=== PATIENT | male | born 1985 | race Caucasian/White ===

== ENCOUNTER 2017-03-21 16:00 | Inpatient (IN) | payer BC, OTHER ==
[~2017-03-21] VITALS: Ht 180.3 cm; Wt 86.2 kg
--- NOTE | 2017-03-21 21:15 | NUR ---
Pre-Admission Patient was seen in intake office and is noted to be mildly intoxicated but stable to continue with admission. Vital signs rendered and noted as 122/69, 79, 18, 97.9, 98%, 0/10. Medications and unit protocols explained and patient is able to verbalize understanding. Will continue with admission process on unit.
[2017-03-21] MEDS ORDERED: IBUPROFEN 600 MG TABLET PO PRN (22:00)
[2017-03-21] MEDS ORDERED: ACETAMINOPHEN 325 MG TABLET PO PRN (22:00)
[2017-03-21] MEDS ORDERED: BUPRENORPHINE HCL 2 MG TAB.SUBL SL PRN (22:00)
[2017-03-21] MEDS ORDERED: MIRALAX 17 GM POWD.PACK PO PRN (22:00)
[2017-03-21] MEDS ORDERED: ONDANSETRON 4 MG/2 ML VIAL IM PRN (22:00)
[2017-03-21] MEDS ORDERED: MAG HYDROX/AL HYDROX/SIMETH 30 ML LIQUID UDC PO PRN (22:00)
[2017-03-21] MEDS ORDERED: MAGNESIUM HYDROXIDE 30 ML LIQUID UDC PO PRN (22:00)
[2017-03-21] MEDS ORDERED: diphenhydrAMINE 50 MG CAPSULE PO PRN (22:00)
[2017-03-21] MEDS ORDERED: DICYCLOMINE HCL 20 MG TABLET PO PRN (22:00)
[2017-03-21] MEDS ORDERED: DIAZEPAM 10 MG TABLET PO PRN ×2 (22:00)
[2017-03-21] MEDS ORDERED: DIAZEPAM 5 MG TABLET PO PRN (22:00)
[2017-03-21] MEDS ORDERED: ONDANSETRON ODT 4 MG TAB.RAPDIS SL PRN (22:00)
[2017-03-21] MEDS ORDERED: METHOCARBAMOL 750 MG TABLET PO PRN (22:00)
[2017-03-21] MEDS ORDERED: CLONIDINE HCL 0.1 MG TABLET PO PRN (22:00)
[2017-03-21] MEDS ORDERED: LOPERAMIDE HCL 2 MG CAPSULE PO PRN ×2 (22:00)
[2017-03-21] MEDS ORDERED: LORAZEPAM 2 MG/1 ML VIAL IM PRN (22:00)
[2017-03-21] MEDS ORDERED: DOCUSATE SODIUM 250 MG CAPSULE PO PRN (22:00)
[2017-03-21 22:15] VITALS: BP 134/63
--- NOTE | 2017-03-21 22:15 | NUR ---
Admission Patient is a 31 year old [place] [facility] [place] Opiate and Benzo Withdrawals. Patient was escorted on to unit by male DIRECTOR TRADING where body check was rendered and skin noted intact with many tattoos noted to entire body including face. Patient was able to provide urine drug screen upon arriving to unit. Patient verbalizes no known allergies. Height noted as 5'11 and weight noted as 190lbs. Patient is ambulatory with no assistance needed. Patient is noted to be restless, anxious, and easily agitated. Breathing is even and non labored with no signs of SOB. No pain or discomfort verbalized. BUE and BLE noted to be WNL with no edema noted. Lung sounds clear with no cough noted. Bowel sounds are active in all 4 quadrants with LBM noted 03/21/17. Patient verbalizes past medical history as Hep C (+), Depression, Anxiety, and history of seizures due to Benzo withdrawals. No home medications noted. Patient denies any suicidal ideations. Patient explains "I recent relapsed because [facility] did some stuff that I didn't agree with so I left." He describes his usage as: 1. Heroin, for the past month, using 3GM via inhalation or IV with last use noted on the day of admission 2. Xanax, for the past month, using 10mg PO Daily with last dose noted 03/20/17 Patient explains his signs and symptoms of withdrawals as "anxiety, restless, agitation, cold sweats, nausea, vomiting, and really bad panic attacks." Patient is currently homeless and unemployed. Patient reports of multiple treatment programs with last one noted as [facility] in [facility] for 3 weeks. Admission CIWA 15 and COWS 9. All information reviewed with Dr. Mendez. Labs to be rendered. One time dose of Valium 10mg ordered. Will administer medication accordingly. PRN medications available for increased signs and symptoms. Will continue plan of care as ordered.
[2017-03-21 22:27] LABS: *AMPHETAMINE, URINE POSITIVE (NEGATIVE); *BARBITURATE, URINE NEGATIVE (NEGATIVE); *CANNABINOID, URINE POSITIVE (NEGATIVE); *COCCAINE, URINE NEGATIVE (NEGATIVE); *OPIATE, URINE POSITIVE (NEGATIVE); *PHENCYCLIDINE SCREEN,URINE NEGATIVE (NEGATIVE)
[2017-03-21] MEDS ORDERED: DIAZEPAM 10 MG TABLET PO SCH (22:30)
[2017-03-22 00:31] VITALS: BP 105/65
[2017-03-22] MEDS ORDERED: LOPE2CAP PO (02:48)
--- NOTE | 2017-03-22 04:15 | NUR ---
Vitals refused Patient is noted in bed sleeping. Breathing even and non labored. Attempted to render vitals but patient noted to refuse and pull blankets over head. Risks and benefits explained. Will continue to monitor.
--- NOTE | 2017-03-22 07:22 | NUR ---
End of Shift Patient is in bed sleeping. Breathing even and non labored. Patient is a 31 year old male admitted during shift for Opiate and Benzo Withdrawal. During admission patient was noted to be very anxious, restless, increased diaphoresis, and easily agitated. Admission CIWA noted to be 15 and COWS of 9.One time dose of Valium 10mg ordered as scheduled dose. Patient noted to sleep a total of 5 hours. Patient noted to be noncompliant with vitals and refused 0400. All needs attended to promptly. Will endorse to continue plan of care as ordered.
--- NOTE | 2017-03-22 07:35 | NUR ---
START OF SHIFT Pt is a 31 yr old male, AA&Ox3. Pt was admitted on 03/21/16 for Opiate/Benzo Dependence and is on 5 day Subutex and 4 day Valium taper as ordered. Medication kevin well. Received report from shift supervisor nurse. Last COWS core was 9 and CIWA score was 15. Pt slept for 5 hrs. Pt is on fall and seizure precautions. Pt is currently in bed resting with respirations even and unlabored. No acute distress noted. Skin is intact, warm and dry to touch. Safety precautions observed. Call light is within reach. Will continue to monitor. Addendum: 03/22/17 at 1031 by BISI MENSAH LVN Documentation correction, Pt was admitted for medically supervised withdrawal from Opiates/Benzo
[2017-03-22 08:00] VITALS: BP 99/62
[2017-03-22] MEDS ORDERED: TUBERCULIN,PURIF.PROT.DERIV. 5 TU/0.1 ML TEST ID ONE (09:00)
[2017-03-22] MEDS: BUPRENORPHINE HCL 2 MG TAB.SUBL SL SCH ×4 (09:13→20:32)
[2017-03-22] MEDS: DIAZEPAM 10 MG TABLET PO SCH ×4 (09:13→20:32)
[2017-03-22] MEDS: GABAPENTIN 300 MG CAPSULE PO SCH ×3 (09:13→20:32)
[2017-03-22] MEDS ORDERED: TRAZODONE 100 MG TABLET PO PRN (11:30)
[2017-03-22 12:00] VITALS: BP 136/74
[2017-03-22 12:49] LABS: BASOPHILS # (AUTO) 0.1 K/uL (0.0-8.0); BASOPHILS % (AUTO) 1.1 % (0.0-2.0); EOSINOPHILS # (AUTO) 0.2 K/uL (0.0-0.7); EOSINOPHILS % (AUTO) 3.8 % (0.0-7.0); HEMATOCRIT 42.9 % (36.7-47.1); HEMOGLOBIN 14.3 g/dL (12.5-16.3); LYMPHOCYTES # (AUTO) 1.5 K/uL (20.0-40.0); LYMPHOCYTES % (AUTO) 23.6 % (20.5-51.5); MEAN CORPUSCULAR HGB CONC 33 g/dL (32.5-36.3); MEAN CORPUSCULAR VOLUME 87.5 fL (73.0-96.2); MONOCYTES # (AUTO) 0.5 K/uL (2.0-10.0); MONOCYTES % (AUTO) 8.8 % (0.0-11.0); NEUTROPHILS # (AUTO) 3.9 K/uL (1.8-8.9); NEUTROPHILS % (AUTO) 62.7 % (38.5-71.5); PLATELET COUNT (AUTO) 224 K/uL (152-348); RED BLOOD CELL COUNT(AUTO) 4.91 MIL/uL (4.06-5.63); WHITE BLOOD COUNT (AUTO) 6.3 K/uL (3.6-10.2)
[2017-03-22 12:59] LABS: ALANINE AMINOTRANSFERASE 53 U/L (16-63); ALKALINE PHOSPHATASE 62 U/L (50-136); ASPARTATE AMINOTRANSFERASE 28 U/L (15-37); BILIRUBIN,TOTAL 0.3 mg/dL (0.2-1.0); CARBON DIOXIDE 32 mmol/L (21-32); CHLORIDE 103 mmol/L (98-107); CREATININE 1.2 mg/dL (0.6-1.3); GLUCOSE 86 mg/dL (74-106); MAGNESIUM 1.9 mg/dL (1.8-2.4); POTASSIUM 4.3 mmol/L (3.5-5.1); TOTAL PROTEIN, SERUM 7.3 g/dL (6.4-8.2); UREA NITROGEN, BLOOD 13 mg/dL (7-18)
[2017-03-22 13:07] LABS: ETHANOL < 3 MG/DL (0-0)
[2017-03-22 16:00] VITALS: BP 138/77
--- NOTE | 2017-03-22 17:56 | NUR ---
BEHAVIORAL NOTE During medication pass at 1300 and 1700, pt was observed with suspicious behavior while taking medication. Pt was observed going into the bathroom after putting the Subutex tablets underneath his tongue. Pt stated of wanting to look in the mirror to "check" if the Subutex tablet was underneath his tongue and was observed touching his lips. Pt was educated on medication regimen. Pt was able to verbalize understanding. Pt was checked for cheeking after medication administration.
--- NOTE | 2017-03-22 19:05 | NUR ---
Start of Shift Patient Received. Patient is noted walking the halls with another patient. Encouraged patient to attend group meeting and patient states I dont really want to. I was in there but I got tired so I walked out. Per endorsement, patient was noted to be suspicious during medication administration. Patient was also noted to be worried about receiving enough medications during his stay. No PRN medications administered. Last noted COWS 8 and CIWA 6. All needs attended to promptly. Will continue plan of care as ordered.
--- NOTE | 2017-03-22 19:09 | NUR ---
END OF SHIFT Pt is a 31 yr old male, AA&Ox4. Pt has been observed with facial suspicious during medication pass at 1300 and 1700. Pt was checked for cheeking after administration medication. Pt c/o increase anxiety and generalized body aches d/t w/d. Pt was observed pacing back and forth in his room during assessment. Pt was observed with stuffy nose and c/o stomach cramping. Pt was encouraged to attend group activities and therapy groups. Pt attended activities and attended H/I group. Pt was able to consume 75-100% of meal intake. No PRNs were given. Last COWS score was 8 and CIWA score 6 at 1600. Safety precautions observed. Call light is within reach.
[2017-03-22 20:29] VITALS: BP 144/82
--- NOTE | 2017-03-22 22:10 | NUR ---
PRN Medication Administration Patient is noted verbalizing inability of falling asleep and insomnia. PRN Trazodone administered. Will continue to monitor.
--- NOTE | 2017-03-22 23:00 | NUR ---
PRN Medication Reassessment Patient noted to approach nurses station and verbalized "Im going to be but I dont want to be awakened thru the night." Vitals refused. Patient was noted to return to room and to go to bed. PRN Trazodone noted to be effective. Will continue to monitor.
--- NOTE | 2017-03-23 00:46 | NUR ---
Vitals Refused Patient verbalized "Please dont wake me up in the middle of the night for vitals. I just want to sleep." Risks and benefits explained. Patient verbalized understanding and states "I took the sleep medication so I can sleep." Will continue to monitor. Addendum: 03/23/17 at 0048 by FROILAN CHEUNG LVN Amended: Links added.
--- NOTE | 2017-03-23 04:00 | NUR ---
Vitals Refused Patient verbalized "Please dont wake me up in the middle of the night for vitals. I just want to sleep." Risks and benefits explained. Patient verbalized understanding and states "I took the sleep medication so I can sleep." Will continue to monitor. Addendum: 03/23/17 at 0532 by FROILAN CHEUNG LVN Amended: Links added.
--- NOTE | 2017-03-23 07:23 | NUR ---
End of Shift Patient is in bed sleeping but easily aroused to verbal stimuli. Breathing even and non labored. Patient received PRN Trazodone for complaints of insomnia with medication noted to be effective. Patient noted to sleep a total of 6 hours. Last noted CIWA 13 and COWS 14. All needs attended to promptly. Will endorse to continue plan of care as ordered.
--- NOTE | 2017-03-23 07:35 | NUR ---
START OF SHIFT Pt is a 31 yr old male admitted on 03/21/17 for Opiate/Benzo withdrawal. Pt is on day 2 of 5 day Subutex taper and 4 day Valium taper as ordered. Received report from overnight caregiver nurse. Pt received Trazodone PRN for sleep during the night. Pt slept for 6 hrs. Last COWS score was 14 and CIWA score was 13 at 2028. Pt is currently in bed sleeping with respirations even and unlabored. Pt has fallen asleep with gummy bears in his hands. Pt is on fall precautions. Call light is within reach. Will continue to monitor.
[2017-03-23 08:35] VITALS: BP 115/69
[2017-03-23] MEDS ORDERED: HYDROXYZINE PAMOATE 25 MG CAPSULE PO PRN (09:00)
[2017-03-23] MEDS: DIAZEPAM 10 MG TABLET PO SCH ×3 (09:00→20:07)
[2017-03-23] MEDS: GABAPENTIN 300 MG CAPSULE PO SCH ×3 (09:00→20:08)
[2017-03-23] MEDS: BUPRENORPHINE HCL 2 MG TAB.SUBL SL SCH ×3 (09:02→20:08)
[2017-03-23 12:33] VITALS: BP 129/78
[2017-03-23 13:17] LABS: HEPATITIS B SURFACE AG Negative (Negative)
[2017-03-23 16:00] VITALS: BP 125/64
--- NOTE | 2017-03-23 19:10 | NUR ---
END OF SHIFT NOTE Pt is a 31 yr old male, AA&Ox4. Pt was observed with increase anxiety and agitated m/b pacing back and forth in the hallway and continuously smoking throughout the day. Pt was offered Vistaril PRN and Clonidine PRN for anxiety but Pt refused medication. Pt appears sad with flat affect. Pt was encouraged to attend group sessions to help cope with anxiety and help with continuation of care but pt refused to attend. No PRNs were given during the day. Last COWS score was 6 and CIWA score was 7 at 1600. Pt consumed 100% of all meals. Pt was encouraged to drink plenty of fluids for hydration. Endorsed to car shifter nurse to continue with care.
--- NOTE | 2017-03-23 19:30 | NUR ---
START OF SHIFT Pt is a 31 y/o male admitted on 03/21/17 for opiate and benzo withdrawal. Pt is on a 5 day Subutex and 4 day diazepam taper, tolerating well. Per day shift nurse, last COWS 6 and CIWA 7 and no PRNs administered. Upon assessment pt presents with restlessness, anxiety, chills, nasal congestion, agitation and flat affect. Safety measures in place. Call light within reach. Medications due. Will continue to monitor.
[2017-03-23 20:00] VITALS: BP 141/78
[2017-03-23] MEDS: CLONIDINE HCL 0.1 MG TABLET PO SCH (20:08)
[2017-03-23] MEDS: BACLOFEN 10 MG TABLET PO SCH (20:08)
[2017-03-23] MEDS: QUETIAPINE FUMARATE 25 MG TABLET PO PRN (22:14)
--- NOTE | 2017-03-23 22:14 | NUR ---
PRN SEROQUEL ADMINISTRATION Pt requests sleep aid. Safety measures in place. Call light within reach. Will continue to monitor.
--- NOTE | 2017-03-23 23:14 | NUR ---
PRN SEROQUEL REASSESSMENT Pt laying in bed with eyes closed. Respirations even and unlabored. Safety measures in place. Call light within reach. Will continue to monitor.
[2017-03-24] VITALS: BP 107/60
--- NOTE | 2017-03-24 | NUR ---
COWS/CIWA DEFERRED Pt laying in bed with eyes closed, COWS/CIWA deferred, to be assessed when pt is awake per orders. Respirations even and unlabored. Safety measures in place. Call light within reach. Will continue to monitor.
--- NOTE | 2017-03-24 04:00 | NUR ---
COWS/CIWA DEFERRED AND VITALS REFUSED Pt laying in bed with eyes closed, COWS/CIWA deferred, to be assessed when pt is awake per orders. Vitals refused. Respirations even and unlabored. Safety measures in place. Call light within reach. Will continue to monitor.
--- NOTE | 2017-03-24 07:30 | NUR ---
END OF SHIFT Pt is a 31 y/o male admitted on 03/21/17 for opiate and benzo withdrawal. Pt is on a 5 day Subutex and 4 day diazepam taper, tolerating well. Pt presented with restlessness, anxiety, chills, nasal congestion, agitation, difficulty sleeping and flat affect. Scheduled medications and PRN Seroquel administered, effective in S/S of withdrawal as verbalized by pt. Last COWS 4 and CIWA 3. Pt slept 6 hours intermittently. Intake 1250 ml, void x 3, stool x 0. Safety measures in place. Call light within reach. Pts needs have been met. Endorsed to day shift nurse.
--- NOTE | 2017-03-24 07:45 | NUR ---
START OF SHIFT Pt is a 31 yr old male admitted on 03/21/17 for Opiate/Benzo withdrawal. Pt is on day 3 of 5 day Subutex taper and 4 day Valium taper as ordered. Received report from corporate safety director nurse. Pt received Seroquel PRN for sleep during the night. Pt slept for 6 hrs. Last COWS score was 4 and CIWA score was 3 at 2000. Pt states he was able to sleep well during the night. Pt states he feels "aight". Pt is observed with flat affect. Pt is on fall precautions. Call light is within reach. Will continue to monitor.
[2017-03-24 08:00] VITALS: BP 115/79
[2017-03-24] MEDS: GABAPENTIN 300 MG CAPSULE PO SCH ×3 (08:40→20:36)
[2017-03-24] MEDS: BACLOFEN 10 MG TABLET PO SCH ×2 (08:40→20:36)
[2017-03-24] MEDS: DIAZEPAM 5 MG TABLET PO SCH ×3 (08:40→20:36)
[2017-03-24] MEDS ORDERED: BUPRENORPHINE HCL 2 MG TAB.SUBL SL SCH (09:00)
--- NOTE | 2017-03-24 09:08 | NUR ---
Therapist prompted client about group times. Client stated he would attend all groups today.
[2017-03-24 12:00] VITALS: BP 148/88
[2017-03-24] MEDS: BUPRENORPHINE HCL 2 MG TAB.SUBL SL SCH ×2 (14:16→20:36)
[2017-03-24 16:00] VITALS: BP 145/97
--- NOTE | 2017-03-24 19:00 | NUR ---
END OF SHIFT NOTE Pt is a 31 yr old male, AA&Ox4. Pt has been observed wtih flat affect and appeared to be sad during the day. Pt was stating of wanting to shorten his stay but was avoiding eye contact. Pt was asked for the reason of early discharge but pt became guarded. Dr. Mendez was made aware. Pt continue to be noted with anxiety m/b constant going to the patio to go smoking. Pt is noted with stuffy nose. Pt was encouraged to attend group sessions to help cope with anxiety and help with continuation of care. pt was cooperative with medication regimen and attended groups. No PRNs were given during the day. Last COWS score was 5 and CIWA score was 8 at 1600. Pt consumed 100% of all meals. Pt was encouraged to drink plenty of fluids for hydration. Endorsed to game show host nurse to continue with care.
--- NOTE | 2017-03-24 19:30 | NUR ---
START OF SHIFT Pt is a 31 y/o male admitted on 03/21/17 for opiate and benzo withdrawal. Pt is on a 5 day Subutex and 4 day diazepam taper, tolerating well. Per day shift nurse, last COWS 5 and CIWA 8 and no PRNs administered. Upon assessment pt presents with restlessness, anxiety, irritability, chills, nasal congestion, agitation, flat affect and is emotionally labile. Safety measures in place. Call light within reach. Medications due. Will continue to monitor.
[2017-03-24 20:00] VITALS: BP 119/84
[2017-03-24] MEDS: CLONIDINE HCL 0.1 MG TABLET PO SCH (20:36)
[2017-03-24] MEDS: NORMAL SALINE NASAL 45 ML BOTTLE NS PRN (21:23)
--- NOTE | 2017-03-24 21:23 | NUR ---
PRN NASAL SPRAY ADMINISTRATION Pt presents with nasal congestion and requests nasal spray. Safety measures in place. Call light within reach. Will continue to monitor.
[2017-03-24] MEDS: QUETIAPINE FUMARATE 25 MG TABLET PO PRN (22:33)
--- NOTE | 2017-03-24 22:33 | NUR ---
PRN NASAL SPRAY REASSESSMENT AND SEROQUEL ADMINISTRATION Pt reports improvement in nasal congestion, nasal spray noted effective. Pt presents with restlessness and requests Seroquel for sleep aid. Safety measures in place. Call light within reach. Will continue to monitor.
--- NOTE | 2017-03-24 23:33 | NUR ---
PRN SEROQUEL REASSESSMENT Pt laying in bed with eyes closed, Seroquel noted effective. Respirations even and unlabored. Safety measures in place. Call light within reach. Will continue to monitor.
--- NOTE | 2017-03-25 07:22 | NUR ---
END OF SHIFT Pt is a 31 y/o male admitted on 03/21/17 for opiate and benzo withdrawal. Pt is on a 5 day Subutex and 4 day diazepam taper, tolerating well. Pt presented with restlessness, anxiety, irritability, chills, nasal congestion, difficulty falling asleep, agitation, flat affect and is emotionally labile. Pt was frequently pacing in hallways during beginning of shift. Scheduled medications and PRN Seroquel and nasal spray administered, effective in S/S of withdrawal as verbalized by pt. Last COWS 6 and CIWA 9. Pt slept 6 hours. Intake 1550 ml, void x 2, stool x 0. Safety measures in place. Call light within reach. Pts needs have been met. Endorsed to day shift nurse.
--- NOTE | 2017-03-25 07:30 | NUR ---
start of shift note: received pt from night worker nurse, pt is in stable condition no s/s of pain or discomfort, pt is admitted to [facility] for opiate and benzo withdrawal/dependence. pts last noted cows is 6 and ciwa 9. pt is currently awake and verbalized he wants to take medications as soon as he can. will continue to monitor pt for any changes and will continue to meet pt's needs
[2017-03-25] MEDS: BUPRENORPHINE HCL 2 MG TAB.SUBL SL SCH ×3 (08:40→20:32)
[2017-03-25] MEDS: DIAZEPAM 5 MG TABLET PO SCH ×2 (08:40→20:31)
[2017-03-25] MEDS: BACLOFEN 10 MG TABLET PO SCH ×2 (08:40→20:31)
[2017-03-25] MEDS: GABAPENTIN 300 MG CAPSULE PO SCH ×3 (08:40→20:31)
[2017-03-25] MEDS: NORMAL SALINE NASAL 45 ML BOTTLE NS PRN (08:41)
--- NOTE | 2017-03-25 08:41 | NUR ---
PRN ADMINISTRATION: PT NOTED WITH NASAL CONGESTION, NASAL SPRAY ADMINISTERED WILL RE-ASSESS FOR EFFECTIVENESS OF MEDICATION
[2017-03-25 09:00] VITALS: BP 129/67
--- NOTE | 2017-03-25 09:41 | NUR ---
PRN RE-ASSESSMENT PT VERBALIZED MEDICATION WAS EFFECTIVE FOR HIS ALLERGIC RHINITIS
--- NOTE | 2017-03-25 12:42 | NUR ---
THerapist prompted client to attend group and not isolate in room.
--- NOTE | 2017-03-25 13:09 | NUR ---
PRN administration: pt noted with b/p of 133/101 prn clonidine was administered. will re-assess pt's b/p
[2017-03-25 13:25] VITALS: BP 133/101
--- NOTE | 2017-03-25 14:00 | NUR ---
PRN RE-ASSESSMENT: PT'S B/P IS NOTED TO BE 124/89 NO S/S OF HYPERTENSION AT THIS TIME
[2017-03-25 17:17] VITALS: BP 141/93
--- NOTE | 2017-03-25 19:06 | NUR ---
END OF SHIFT NOTE: PT IS IN STABLE CONDITION NO S/S OF PAIN OR DISCOMFORT, PT IS ADMITTED TO [facility] FOR OPIATE/BENZO WITHDRAWAL/DEPENDENCE, PTS LAST COWS 7 AND CIWA 9. PT IS STILL AT TIMES NO COMPLIANT WITH RULES AND REGULATIONS, YET IS REDIRECTABLE. PT MAY TEST BOUNDARIES AT TIMES. NO A/R NOTED WILL ENDORSE PT TO JAVA SUPPORT ENGINEER NURSE
--- NOTE | 2017-03-25 19:30 | NUR ---
START OF SHIFT Pt is a 31 y/o male admitted on 03/21/17 for opiate and benzo withdrawal. Pt is on a 5 day Subutex and 4 day diazepam taper, tolerating well. Per day shift nurse, last COWS 6 and CIWA 5 and PRN nasal spray and Clonidine administered. Upon assessment pt presents with restlessness, anxiety, irritability, chills, nasal congestion, agitation, flat affect, difficulty falling and staying asleep, dysphoria, anhedonia, appears depressed and is suspicious . Pt frequently paces around hallways and cannot sit still. Safety measures in place. Call light within reach. Medications due. Will continue to monitor.
[2017-03-25 20:00] VITALS: BP 140/90
[2017-03-25] MEDS: CLONIDINE HCL 0.1 MG TABLET PO SCH (20:32)
[2017-03-25] MEDS: QUETIAPINE FUMARATE 25 MG TABLET PO PRN (22:07)
--- NOTE | 2017-03-25 22:07 | NUR ---
PRN SEROQUEL ADMINISTRATION Pt requests sleep aid for insomnia, appears restless and is pacing hallways. Safety measures in place. Call light within reach. Will continue to monitor.
--- NOTE | 2017-03-26 07:05 | NUR ---
END OF SHIFT Pt is a 31 y/o male admitted on 03/21/17 for opiate and benzo withdrawal. Pt is on a 5 day Subutex and 4 day diazepam taper, tolerating well. Pt presented with restlessness, anxiety, irritability, chills, nasal congestion, agitation, flat affect, difficulty falling and staying asleep, dysphoria, anhedonia, appears depressed and is suspicious . Pt frequently paced around hallways and cannot sit still. Scheduled medications and PRN Seroquel administered, effective in S/S of withdrawal as verbalized by pt. Last COWS 8 and CIWA 9. Pt slept 5 hours intermittently. Pt had difficulty staying asleep throughout shift. Intake 2760 ml, void x 5, stool x 2. Safety measures in place. Call light within reach. Pts needs have been met. Endorsed to day shift nurse.
--- NOTE | 2017-03-26 07:45 | NUR ---
START OF SHIFT Pt is a 31 yr old male admitted on 03/21/17 for Opiate/Benzo withdrawal. Pt is on day 5 of 5 day Subutex taper and has completed 4 day Valium taper as ordered on 03/25/17. Received report from integrated marketing specialist nurse. Pt received Seroquel PRN for sleep during the night. Pt slept for 5 hrs. Last COWS score was 8 and CIWA score was 9 at 1999. Pt is observed with flat affect and stuff nose. Pt states he feels "aight". Pt denies any pain. Safety precautions observed. Call light is within reach. Will continue to monitor.
[2017-03-26 08:00] VITALS: BP 120/80
[2017-03-26] MEDS: GABAPENTIN 300 MG CAPSULE PO SCH ×3 (08:31→21:09)
[2017-03-26] MEDS: BACLOFEN 10 MG TABLET PO SCH ×2 (08:31→21:08)
[2017-03-26] MEDS ORDERED: BUPRENORPHINE HCL 2 MG TAB.SUBL SL SCH (09:00)
[2017-03-26 12:00] VITALS: BP 113/91
--- NOTE | 2017-03-26 15:38 | NUR ---
PRN'S GIVEN Pt c/o heartburn, muscle aches and headache. Maalox 30ml PRN, Motrin 600mg PO PRN and Robaxin 750mg PO PRN was given as ordered. Medication kevin well. Encouraged increase fluid intake. Will continue to monitor.
[2017-03-26 16:00] VITALS: BP 138/61
--- NOTE | 2017-03-26 16:30 | NUR ---
PRN RE-ASSESSMENT Maalox PRN, Motrin PRN and Robaxin PRN was effective. Pt denies any pain, headache or heartburn. Encouraged increase fluid intake. Will continue to monitor.
--- NOTE | 2017-03-26 18:48 | NUR ---
END OF SHIFT NOTE Pt is a 31 yr old male, AA&Ox4. Pt has completed a 5 day Subutex taper today on 03/26/17. Pt is to be discharged tomorrow on 03/27/17 to [facility]. Pt states of having anxiety but is able to cope with anxiety level. Pt does state of feeling "better". Pt c/o heartburn, headache and muscle aches. Maalox PRN, Motrin 600mg PO PRN and Robaxin 750mg PO PRN was given, medication was effective. Last COWS score was 6 and CIWA score was 5 at 1600. Pt consumed 100% of all meals. Pt was cooperative with medication regimen and attended group therapy. Pt was encouraged to drink plenty of fluids for hydration. Safety precautions observed. Call light is within reach.
--- NOTE | 2017-03-26 19:30 | NUR ---
START OF SHIFT Received 31 year old male patient. Pt currently in group at this time. Per endorsement, pt received PRN Maalox, Motrin, and Robaxin. He is scheduled to be DC tomorrow to [facility]. Will continue to monitor.
[2017-03-26 20:00] VITALS: BP 138/78
[2017-03-26] MEDS: CLONIDINE HCL 0.1 MG TABLET PO SCH (21:08)
[2017-03-26] MEDS ORDERED: DICY20TA28 PO (21:49)
[2017-03-26] MEDS ORDERED: QUET25TA PO (21:49)
[2017-03-26] MEDS ORDERED: IBUP-1955 PO (21:49)
[2017-03-26] MEDS ORDERED: GABA-534 PO ×2 (21:49)
[2017-03-26] MEDS ORDERED: HYDR-3895 PO (21:49)
[2017-03-26] MEDS ORDERED: CLON0.1T14 PO (21:49)
[2017-03-26] MEDS ORDERED: METH-406 PO (21:49)
--- NOTE | 2017-03-26 22:20 | NUR ---
PRN SEROQUEL Pt complains of insomnia. PRN Seroquel administered as ordered. Safety measures in place. Will monitor effectiveness.
[2017-03-26] MEDS: QUETIAPINE FUMARATE 25 MG TABLET PO PRN (22:23)
--- NOTE | 2017-03-26 23:40 | NUR ---
PRN SEROQUEL REASSESSMENT PRN medication effective. Pt lying in bed with eyes closed noted to be asleep. Breathing even and unlabored. Respirations 16. Safety measures in place. Will continue to monitor.
--- NOTE | 2017-03-27 00:15 | NUR ---
VITALS REFUSED, COWS/CIWA DEFERRED 0000 vitals refused. COWS and CIWA deferred. Pt is lying in bed with eyes closed and is noted to be asleep. Safety measures in place. Will continue to monitor.
[2017-03-27 04:06] VITALS: BP 142/82
--- NOTE | 2017-03-27 04:12 | NUR ---
PRN ZOFRAN Pt complains of nausea with no episode of vomiting. PRN Zofran administered as ordered. Safety measures in place. Will monitor effectiveness.
--- NOTE | 2017-03-27 05:12 | NUR ---
PRN ZOFRAN REASSESSMENT PRN medication effective. Pt lying in bed with eyes closed noted to be asleep. No facial grimacing. Safety measures in place. Will continue to monitor.
--- NOTE | 2017-03-27 06:58 | NUR ---
END OF SHIFT Pt is a 31 year old male patient. Pt remains alert and oriented x4. He was noted with anxiety, restlessness, nausea and insomnia during shift. He received PRN Seroquel and Zofran. He is scheduled to be DC today to [facility]. He slept a total of 5 hrs, Intake: 2,129mL, Void: x4, BM:x1, COWS: 7, CIWA: 6. Breathing is even and unlabored, safety measures in place. Will endorse to AM shift.
--- NOTE | 2017-03-27 07:30 | NUR ---
start of shift note: received pt from program attendant nurse, pt is in stable condition no s/s of pain or discomfort, pt is admitted for opiate/benzo withdrawal/dependence. pt is set to discharge today will assist pt in discharging and will continue to monitor pt for any changes.
[2017-03-27] MEDS: GABAPENTIN 300 MG CAPSULE PO SCH (08:46)
[2017-03-27] MEDS: BACLOFEN 10 MG TABLET PO SCH (08:46)
--- NOTE | 2017-03-27 09:54 | NUR ---
discharge note: pt left the unit in stable condition no s/s of pain, discomfort, or any withdrawal symptoms. pt teaching was administered and pt verbalized understanding, pt will be transferred to the [facility] via private car
== END 2017-03-27 09:54 | disposition other institution (70) | DRG 895 ==
LOC: SRC 20:34
PROVIDERS: ADMIT Internal Medicine; ATTEND Internal Medicine
PROC: HZ2ZZZZ Detoxification Services for Substance Abuse Treatment (ICD-10-PCS; principal; 2017-03-21)
PROC: HZ41ZZZ Group Counseling for Substance Abuse Treatment, Behavioral (ICD-10-PCS; 2017-03-24)
PROC: HZ31ZZZ Individual Counseling for Substance Abuse Treatment, Behavioral (ICD-10-PCS; 2017-03-24)
DX: F11.23 Opioid dependence with withdrawal (principal); I15.9 Secondary hypertension, unspecified; B19.20 Unspecified viral hepatitis C without hepatic coma; F12.10 Cannabis abuse, uncomplicated; F41.9 Anxiety disorder, unspecified; Z91.89 Other specified personal risk factors, not elsewhere classified; F13.232 Sedative, hypnotic or anxiolytic dependence with withdrawal with perceptual disturbance; Z83.3 Family history of diabetes mellitus; Z81.1 Family history of alcohol abuse and dependence; Z81.3 Family history of other psychoactive substance abuse and dependence; Z59.1 Inadequate housing; F17.210 Nicotine dependence, cigarettes, uncomplicated; Z59.0 Homelessness; F15.10 Other stimulant abuse, uncomplicated
CPT/HCPCS: 36415; 70030-TC; 80307; 80324; 80346; 80349; 80361; 83735; 85025; 86580; 86592; 86705; 86803; 87340; 87806; G0480; Q0162